=== PATIENT | female | born 1965 | race Caucasian/White ===

== ENCOUNTER 2017-03-31 15:23 | Emergency (ER) | payer MEDICARE, MEDICAID ==
[~2017-03-31] VITALS: Ht 167.6 cm; Wt 79.0 kg
[~2017-03-31 15:23] MED LIST: ALBU6.7H INH; BUDE10.2 INH; CLA10T PO; CRANBERRY PO; FOLIC ACID PO; LORA1TAB PO; PANT40TA39 PO; RANI150C4 PO; VITAMIN B PO; VITAMIN D PO; [UNRECOGNIZED DRUG - OTHER] NS
[2017-03-31 15:56] LABS: BASOPHILS % (AUTO) 0.4 % (0-1); EOSINOPHILS # (AUTO) 0.2 X10'3 (0-0.9); HEMOGLOBIN 13.1 g/dl (12.0-16.0); LYMPHOCYTES # (AUTO) 2.2 X10'3 (1.1-4.8); MEAN CORPUSCULAR HEMOGLOBIN 30.9 PG (27.0-31.0); MEAN CORPUSCULAR HGB CONC 34.5 % (33.0-36.5); MEAN CORPUSCULAR VOLUME 89.4 FL (78-98); MEAN PLATELET VOLUME 8.8 FL (7.4-10.4); MONOCYTES # (AUTO) 0.4 X10'3 (0-0.9); MONOCYTES % (AUTO) 5.1 % (2-12); NEUTROPHILS # (AUTO) 5.1 X10'3 (1.8-7.7); NEUTROPHILS % (AUTO) 63.5 % (42-75); PLATELET COUNT 220 X10'3 (140-440); RED BLOOD COUNT 4.24 X10'6 (4.20-5.60); RED CELL DISTRIBUTION WIDTH 13.9 % (11.5-14.5)
[2017-03-31 16:12] LABS: ALANINE AMINOTRANSFERASE 19 U/L (12-78); ALBUMIN 3.8 G/DL (3.4-5.0); ALBUMIN/GLOBULIN RATIO 1.1 (1.1-1.5); ALKALINE PHOSPHATASE 90 IU/L (46-116); ANION GAP 9 (8-16); ASPARTATE AMINO TRANSFERASE 21 U/L (10-37); BILIRUBIN,TOTAL 0.3 MG/DL (0.1-1.0); BLOOD UREA NITROGEN 8 MG/DL (7-18); BUN/CREATININE RATIO 14.3 (6.6-38.0); CALCIUM 8.9 MG/DL (8.5-10.1); CHLORIDE 99 MMOL/L (99-107); CREATININE 0.56 MG/DL (0.40-0.90); GLUCOSE 103 MG/DL (70-104); LIPASE 183 U/L (73-393); POTASSIUM 3.7 MMOL/L (3.5-5.1); SODIUM 136 MMOL/L (135-145); TOTAL CARBON DIOXIDE 27.7 MMOL/L (24-32); TOTAL PROTEIN 7.3 G/DL (6.4-8.2); eGFR > 90 ML/MIN
[2017-03-31] MEDS ORDERED: ketorolac trometh inj. 60 MG/2 ML VIAL IM ONE (17:10)
[2017-03-31] MEDS ORDERED: aspirin 81mg tab.chew PO ONE (17:10)
[2017-03-31] MEDS ORDERED: iohexol 350MG/ML 100ml bottle IV ONE (17:24)
[2017-03-31] MEDS ORDERED: normal saline 1000ml 1,000 ML IV ONE (17:30)
[2017-03-31] MEDS ORDERED: ondansetron/PF 4mg/2ml inj IV ONE (17:30)
[2017-03-31] MEDS ORDERED: ketorolac trometh. 30mg/ml inj. IV STA (17:35)
[2017-03-31 17:37] LABS: PROTHROMBIN TIME 10.1 SECONDS (9.0-12.0)
[2017-03-31 19:07] LABS: URINE HCG NEGATIVE (NEG)
[2017-03-31 19:17] LABS: URINE AMPHETAMINE SCREEN NEGATIVE (Neg); URINE BARBITUATE SCREEN NEGATIVE (Neg); URINE BENZODIAZEPINES SCREEN NEGATIVE (Neg); URINE CANNABINOID SCREEN NEGATIVE (Neg); URINE COCAINE SCREEN NEGATIVE (Neg); URINE METHADONE SCREEN NEGATIVE (Neg); URINE OPIATE SCREEN NEGATIVE (Neg); URINE PHENCYCLIDINE SCREEN NEGATIVE (Neg)
[2017-03-31 19:19] LABS: CLARITY,URINE SLIGHTLY CLOUDY (Clear); COLOR,URINE YELLOW (Yellow); GLUCOSE, URINE NEGATIVE (Neg); KETONES,URINE 15 mg/dl (Neg); LEUKOCYTE ESTERASE ,URINE NEGATIVE (Neg); NITRITES, URINE NEGATIVE (Neg); OCCULT BLOOD,URINE NEGATIVE (Neg); PH,URINE 8.5 (4.8-8.0); PROTEIN,URINE NEGATIVE (Neg); UROBILINOGEN,URINE 0.2 E.U/dL (0.2-1.0)
[2017-03-31 19:21] LABS: UA COLLECTION TYPE CLN CATCH MIDSTREAM
[2017-03-31 19:22] LABS: RBC,URINE NONE SEEN /HPF (0-2); WBC,URINE 0-4 /HPF (0-4)
[2017-03-31 19:23] LABS: BACTERIA,URINE 1+ /HPF (Neg); SQUAMOUS EPITHELIAL CELL,UR MODERATE /LPF (FEW); YEAST FEW /HPF (NEGATIVE)
[2017-03-31] MEDS ORDERED: HYDROmorphone 1 mg/ml syringe IV ONE ×2 (19:25→19:30)
[2017-03-31] MEDS ORDERED: pantoprazole 40 MG vial IV ONE (20:40)
[2017-03-31] MEDS ORDERED: SUCR1TAB34 PO (20:56)
[2017-03-31] MEDS ORDERED: PANT-47 PO (20:56)
[2017-03-31] MEDS ORDERED: ACET-812 PO (20:59)
[2017-03-31] MEDS ORDERED: HYDR-569 PO (20:59)
[2017-03-31 21:12] VITALS: BP 103/59
== END 2017-03-31 21:16 | disposition home or self-care (01) ==
LOC: ER 15:24
DX: K29.00 Acute gastritis without bleeding (principal); I48.91 Unspecified atrial fibrillation; J44.9 Chronic obstructive pulmonary disease, unspecified; K21.9 Gastro-esophageal reflux disease without esophagitis; G89.29 Other chronic pain; Z86.73 Personal history of transient ischemic attack (TIA), and cerebral infarction without residual deficits; Z85.038 Personal history of other malignant neoplasm of large intestine; Z86.711 Personal history of pulmonary embolism
CPT/HCPCS: 36415; 71275; 74175; 80053; 80305; 81001; 81025; 83605; 83690; 84145; 84484; 85025; 85610; 87040; 93005; 96361; 96374; 96375; 99285; C9113; J1885; J2405; J7030; Q9967

== ENCOUNTER 2017-04-25 16:05 | Emergency (ER) | payer MEDICARE, MEDICAID ==
[~2017-04-25] VITALS: Ht 167.6 cm; Wt 81.7 kg
[~2017-04-25 16:05] MED LIST changes: +ACET-812 PO; +HYDR-569 PO; +PANT-47 PO; +SUCR1TAB34 PO
[2017-04-25 16:10] VITALS: BP 111/83
[2017-04-25] MEDS ORDERED: PRED20TA PO (16:25)
== END 2017-04-25 16:38 | disposition home or self-care (01) ==
LOC: ER 16:06
DX: J02.9 Acute pharyngitis, unspecified (principal); J44.9 Chronic obstructive pulmonary disease, unspecified; K21.9 Gastro-esophageal reflux disease without esophagitis; G89.29 Other chronic pain; F17.200 Nicotine dependence, unspecified, uncomplicated; Z86.73 Personal history of transient ischemic attack (TIA), and cerebral infarction without residual deficits; Z86.711 Personal history of pulmonary embolism; Z79.899 Other long term (current) drug therapy
CPT/HCPCS: 99283

== ENCOUNTER 2018-09-15 20:48 | Emergency (ER) | payer MEDICARE, MEDICAID ==
[~2018-09-15] VITALS: Ht 167.6 cm; Wt 85.0 kg
[~2018-09-15 20:48] MED LIST changes: -ACET-812 PO; +HYDR-4383 PO; -HYDR-569 PO
[2018-09-15] MEDS ORDERED: normal saline 1000ML IV soln IVB ONE ×2 (20:55→22:05)
[2018-09-15] MEDS ORDERED: ketorolac tromethamine 15mg/ml inj. IV ONE (21:10)
[2018-09-15] MEDS ORDERED: ondansetron/PF 4mg/2ml inj IV ONE (21:10)
[2018-09-15 21:26] LABS: BASOPHILS % (AUTO) 0.7 % (0-1); EOSINOPHILS # (AUTO) 0.1 X10'3 (0-0.9); HEMATOCRIT 41.6 % (35.0-45.0); HEMOGLOBIN 14.4 g/dl (12.0-16.0); LYMPHOCYTES # (AUTO) 2.6 X10'3 (1.1-4.8); LYMPHOCYTES % (AUTO) 38.4 % (21-51); MEAN CORPUSCULAR HEMOGLOBIN 31.7 PG (27.0-31.0); MEAN CORPUSCULAR HGB CONC 34.5 g/dL (33.0-36.5); MEAN PLATELET VOLUME 8.6 FL (7.4-10.4); MONOCYTES # (AUTO) 0.4 X10'3 (0-0.9); MONOCYTES % (AUTO) 6.4 % (2-12); NEUTROPHILS # (AUTO) 3.6 X10'3 (1.8-7.7); NEUTROPHILS % (AUTO) 52.5 % (42-75); PLATELET COUNT 166 X10'3 (140-440); RED BLOOD COUNT 4.52 X10'6 (4.20-5.60); RED CELL DISTRIBUTION WIDTH 14.6 % (11.5-14.5); WHITE BLOOD COUNT 6.9 X10'3 (4.5-11.0)
[2018-09-15 21:33] LABS: UA COLLECTION TYPE NON-SPECIFIED
[2018-09-15 21:34] LABS: CLARITY,URINE CLEAR (Clear); COLOR,URINE YELLOW (Yellow); GLUCOSE, URINE NEGATIVE (Neg); KETONES,URINE NEGATIVE (Neg); LEUKOCYTE ESTERASE ,URINE NEGATIVE (Neg); NITRITES, URINE NEGATIVE (Neg); OCCULT BLOOD,URINE TRACE-INTACT (Neg); PROTEIN,URINE NEGATIVE (Neg); UROBILINOGEN,URINE 0.2 E.U/dL (0.2-1.0)
[2018-09-15 21:36] LABS: ALANINE AMINOTRANSFERASE 91 U/L (12-78); ALBUMIN 3.4 G/DL (3.4-5.0); ALKALINE PHOSPHATASE 86 IU/L (46-116); ANION GAP 12 (8-16); BILIRUBIN,TOTAL 0.4 MG/DL (0.1-1.0); BLOOD UREA NITROGEN 2 MG/DL (7-18); BUN/CREATININE RATIO 5.4 (6.6-38.0); CHLORIDE 92 MMOL/L (99-107); CREATININE 0.37 MG/DL (0.40-0.90); ETHANOL 0.246 GM/DL (0.0-0.010); GLUCOSE 82 MG/DL (70-104); LIPASE 262 U/L (73-393); POTASSIUM 3.3 MMOL/L (3.5-5.1); SODIUM 126 MMOL/L (135-145); TOTAL CARBON DIOXIDE 21.9 MMOL/L (24-32); TOTAL PROTEIN 6.8 G/DL (6.4-8.2); eGFR > 90 ML/MIN
[2018-09-15 21:40] LABS: BACTERIA,URINE NONE SEEN /HPF (Neg); MUCUS STRANDS NONE SEEN /LPF (Neg); RBC,URINE NONE SEEN /HPF (0-2); SQUAMOUS EPITHELIAL CELL,UR NONE SEEN /LPF (FEW); WBC,URINE NONE SEEN /HPF (0-4)
[2018-09-15 21:47] LABS: URINE AMPHETAMINE SCREEN NEGATIVE (Neg); URINE BARBITUATE SCREEN NEGATIVE (Neg); URINE BENZODIAZEPINES SCREEN NEGATIVE (Neg); URINE CANNABINOID SCREEN NEGATIVE (Neg); URINE COCAINE SCREEN NEGATIVE (Neg); URINE METHADONE SCREEN NEGATIVE (Neg); URINE OPIATE SCREEN NEGATIVE (Neg); URINE PHENCYCLIDINE SCREEN NEGATIVE (Neg)
[2018-09-15 21:50] LABS: ASPARTATE AMINO TRANSFERASE 83 U/L (10-37)
[2018-09-15] MEDS ORDERED: potassium Cl 20 mEq SR tablet PO STA (22:05)
[2018-09-15 22:50] VITALS: BP 106/82
== END 2018-09-15 23:13 | disposition home or self-care (01) ==
LOC: ER 20:48
DX: F10.929 Alcohol use, unspecified with intoxication, unspecified (principal); E87.6 Hypokalemia; E87.1 Hypo-osmolality and hyponatremia; R10.11 Right upper quadrant pain; R10.13 Epigastric pain; J44.9 Chronic obstructive pulmonary disease, unspecified; K21.9 Gastro-esophageal reflux disease without esophagitis; G89.29 Other chronic pain; Z88.0 Allergy status to penicillin; Z86.73 Personal history of transient ischemic attack (TIA), and cerebral infarction without residual deficits; Z86.711 Personal history of pulmonary embolism; Z79.899 Other long term (current) drug therapy; Y90.9 Presence of alcohol in blood, level not specified
CPT/HCPCS: 36415; 80053; 80305; 80320; 81001; 83690; 85025; 96361; 96374; 96375; 99283; J1885; J2405; J7030

== ENCOUNTER 2018-09-26 15:00 | Emergency (ER) | payer MEDICARE, MEDICAID ==
[~2018-09-26] VITALS: Ht 167.6 cm; Wt 84.5 kg
[2018-09-26] MEDS ORDERED: LORazepam 2 mg/ml vial IV ONE (16:25)
[2018-09-26] MEDS ORDERED: morphine 4 MG/ML inj SYRINge IV ONE (16:25)
[2018-09-26] MEDS ORDERED: normal saline 1000ML IV soln IVB ONE (16:25)
--- NOTE | 2018-09-26 16:45 | NUR ---
US ON WAY
[2018-09-26 17:02] LABS: ALANINE AMINOTRANSFERASE 160 U/L (12-78); ALBUMIN 3.5 G/DL (3.4-5.0); ALKALINE PHOSPHATASE 94 IU/L (46-116); ANION GAP 14 (8-16); ASPARTATE AMINO TRANSFERASE 202 U/L (10-37); BILIRUBIN,TOTAL 0.4 MG/DL (0.1-1.0); BLOOD UREA NITROGEN 3 MG/DL (7-18); BUN/CREATININE RATIO 6.8 (6.6-38.0); CALCIUM 8.3 MG/DL (8.5-10.1); CHLORIDE 95 MMOL/L (99-107); CREATININE 0.44 MG/DL (0.40-0.90); GLUCOSE 70 MG/DL (70-104); POTASSIUM 3.4 MMOL/L (3.5-5.1); SODIUM 130 MMOL/L (135-145); TOTAL CARBON DIOXIDE 21.3 MMOL/L (24-32); TOTAL PROTEIN 6.9 G/DL (6.4-8.2); eGFR > 90 ML/MIN
[2018-09-26 17:03] LABS: BASOPHILS % (AUTO) 0.8 % (0-1); EOSINOPHILS # (AUTO) 0.1 X10'3 (0-0.9); EOSINOPHILS % (AUTO) 1.2 % (0-6); HEMATOCRIT 41.5 % (35.0-45.0); HEMOGLOBIN 14.5 g/dl (12.0-16.0); LYMPHOCYTES # (AUTO) 2.4 X10'3 (1.1-4.8); LYMPHOCYTES % (AUTO) 40.7 % (21-51); MEAN CORPUSCULAR HEMOGLOBIN 32.7 PG (27.0-31.0); MEAN CORPUSCULAR VOLUME 93.5 FL (78-98); MEAN PLATELET VOLUME 8.6 FL (7.4-10.4); MONOCYTES # (AUTO) 0.3 X10'3 (0-0.9); MONOCYTES % (AUTO) 5.9 % (2-12); NEUTROPHILS % (AUTO) 51.4 % (42-75); PLATELET COUNT 185 X10'3 (140-440); RED BLOOD COUNT 4.44 X10'6 (4.20-5.60); RED CELL DISTRIBUTION WIDTH 15.1 % (11.5-14.5); WHITE BLOOD COUNT 5.9 X10'3 (4.5-11.0)
[2018-09-26 18:40] LABS: LIPASE 199 U/L (73-393)
[2018-09-26] MEDS ORDERED: ONDA4TAB6 PO (18:56)
[2018-09-26 19:12] VITALS: BP 124/72
[2018-09-30] MEDS ORDERED: ALBU18HF2 IH (12:42)
[2018-09-30] MEDS ORDERED: ASPI-611 PO (12:45)
== END 2018-09-26 19:13 | disposition home or self-care (01) ==
LOC: ER 15:00
DX: K80.20 Calculus of gallbladder without cholecystitis without obstruction (principal); R11.10 Vomiting, unspecified; J44.9 Chronic obstructive pulmonary disease, unspecified; K21.9 Gastro-esophageal reflux disease without esophagitis; G89.29 Other chronic pain; Z79.899 Other long term (current) drug therapy; Z86.73 Personal history of transient ischemic attack (TIA), and cerebral infarction without residual deficits; Z86.711 Personal history of pulmonary embolism
CPT/HCPCS: 36415; 76700; 80053; 83690; 85025; 96361; 96374; 96375; 99284; J2060; J2270; J7030

== ENCOUNTER 2018-10-21 08:34 | Outpatient (CLI) | payer MEDICARE, MEDICAID ==
[~2018-10-21 08:34] MED LIST changes: -ALBU6.7H INH; -BUDE10.2 INH; -CLA10T PO; -CRANBERRY PO; -FOLIC ACID PO; -HYDR-4383 PO; +LORA-269 PO; -LORA1TAB PO; +ONDA4TAB6 PO; -PANT-47 PO; -PANT40TA39 PO; +PANT40TA4 PO; -RANI150C4 PO; -SUCR1TAB34 PO; -VITAMIN B PO; -VITAMIN D PO; -[UNRECOGNIZED DRUG - OTHER] NS
== END 2018-10-21 23:59 | disposition home or self-care (01) ==
LOC: RAD 08:34
PROVIDERS: ATTEND Surgery
DX: R10.9 Unspecified abdominal pain (principal); J44.9 Chronic obstructive pulmonary disease, unspecified; F17.200 Nicotine dependence, unspecified, uncomplicated; Z90.49 Acquired absence of other specified parts of digestive tract
CPT/HCPCS: 78226; A9537

== ENCOUNTER 2018-11-03 12:58 | Inpatient (IN) | payer MEDICARE, MEDICAID ==
[~2018-11-03] VITALS: Ht 167.6 cm; Wt 77.3 kg
[2018-11-03] MEDS ORDERED: normal saline 1000ML IV soln IVB ONE ×2 (13:25→14:55)
[2018-11-03] MEDS ORDERED: haloperidol lactate 5mg/ml inj IM ONE (13:25)
[2018-11-03] MEDS ORDERED: LORazepam 2 mg/ml vial IV ONE (13:25)
[2018-11-03 13:46] LABS: BASOPHILS % (AUTO) 0.3 % (0-1); EOSINOPHILS # (AUTO) 0.1 X10'3 (0-0.9); EOSINOPHILS % (AUTO) 0.5 % (0-6); HEMATOCRIT 42.9 % (35.0-45.0); HEMOGLOBIN 14.8 g/dl (12.0-16.0); LYMPHOCYTES # (AUTO) 1.3 X10'3 (1.1-4.8); LYMPHOCYTES % (AUTO) 13.2 % (21-51); MEAN CORPUSCULAR HGB CONC 34.6 g/dL (33.0-36.5); MEAN CORPUSCULAR VOLUME 92.5 FL (78-98); MEAN PLATELET VOLUME 10.1 FL (7.4-10.4); MONOCYTES # (AUTO) 0.7 X10'3 (0-0.9); MONOCYTES % (AUTO) 6.5 % (2-12); NEUTROPHILS % (AUTO) 79.5 % (42-75); PLATELET COUNT 209 X10'3 (140-440); RED BLOOD COUNT 4.63 X10'6 (4.20-5.60); RED CELL DISTRIBUTION WIDTH 13.6 % (11.5-14.5)
[2018-11-03] MEDS ORDERED: morphine 4 MG/ML inj SYRINge IV ONE (13:55)
[2018-11-03 13:57] LABS: ALANINE AMINOTRANSFERASE 198 U/L (12-78); ALBUMIN 3.6 G/DL (3.4-5.0); ALKALINE PHOSPHATASE 670 IU/L (46-116); ANION GAP 12 (8-16); ASPARTATE AMINO TRANSFERASE 359 U/L (10-37); BILIRUBIN,TOTAL 1.6 MG/DL (0.1-1.0); BLOOD UREA NITROGEN 3 MG/DL (7-18); BUN/CREATININE RATIO 4.5 (6.6-38.0); CALCIUM 9.7 MG/DL (8.5-10.1); CHLORIDE 97 MMOL/L (99-107); CREATININE 0.66 MG/DL (0.40-0.90); GLUCOSE 121 MG/DL (70-104); LIPASE 142 U/L (73-393); POTASSIUM 3.4 MMOL/L (3.5-5.1); SODIUM 131 MMOL/L (135-145); TOTAL PROTEIN 7.2 G/DL (6.4-8.2); eGFR > 90 ML/MIN
--- NOTE | 2018-11-03 14:09 | NUR ---
TO CT VIA W/C
[2018-11-03 15:27] LABS: CLARITY,URINE CLOUDY (Clear); COLOR,URINE YELLOW (Yellow); GLUCOSE, URINE NEGATIVE (Neg); KETONES,URINE 15 mg/dl (Neg); LEUKOCYTE ESTERASE ,URINE NEGATIVE (Neg); NITRITES, URINE NEGATIVE (Neg); OCCULT BLOOD,URINE TRACE-INTACT (Neg); PROTEIN,URINE 100 mg/dl (Neg)
[2018-11-03 15:29] LABS: UA COLLECTION TYPE CLN CATCH MIDSTREAM
--- NOTE | 2018-11-03 15:32 | NUR ---
spouse mary phone number [phone] home cell [phone]
[2018-11-03 15:38] LABS: HYALINE CASTS >30 /LPF (NEGATIVE); MUCUS STRANDS MODERATE /LPF (Neg); SQUAMOUS EPITHELIAL CELL,UR MANY /LPF (FEW); URINE AMPHETAMINE SCREEN NEGATIVE (Neg); URINE BARBITUATE SCREEN NEGATIVE (Neg); URINE BENZODIAZEPINES SCREEN NEGATIVE (Neg); URINE CANNABINOID SCREEN NEGATIVE (Neg); URINE COCAINE SCREEN NEGATIVE (Neg); URINE METHADONE SCREEN NEGATIVE (Neg); URINE OPIATE SCREEN POSITIVE (Neg); URINE PHENCYCLIDINE SCREEN NEGATIVE (Neg)
[2018-11-03 15:39] LABS: BACTERIA,URINE 2+ /HPF (Neg)
[2018-11-03 15:41] LABS: ACETAMINOPHEN < 2.0 UG/ML (10-30); ETHANOL < 0.010 GM/DL (0.0-0.010)
[2018-11-03] MEDS ORDERED: ESOM40CA54 PO (15:48)
[2018-11-03] MEDS ORDERED: mag hydrox/Alum hydrox/simeth 30ml oral suspension PO PRN (15:50)
[2018-11-03] MEDS ORDERED: ondansetron/PF 4mg/2ml inj IV PRN (15:50)
[2018-11-03] MEDS ORDERED: magnesium hydroxide 30ml (MOM) UD suspension PO PRN (15:50)
[2018-11-03] MEDS ORDERED: acetaminophen 325mg tablet PO PRN (15:50)
[2018-11-03] MEDS ORDERED: TRAM50TA2 PO (16:03)
[2018-11-03] MEDS: normal saline 1000ml 1,000 ML IV SCH ×2 (16:26→18:30)
--- NOTE | 2018-11-03 16:31 | NUR ---
MRI QUESTIONAIRE COMPLETE
--- NOTE | 2018-11-03 19:00 | NUR ---
ATTEMPTED TO CALL SAL TO GIVE REPORT ON PT GOING TO [id number]. SHE IS IN ANOTHER PT ROOM
--- NOTE | 2018-11-03 19:14 | NUR ---
CALLED REPORT TO SAL WINTER IN NEURO
--- NOTE | 2018-11-03 19:20 | NUR ---
Received report from HARDBOARD FACTORY WORKERMAGGY Montelongo. Patient to follow shortly.
[2018-11-03 19:30] VITALS: BP 99/61
--- NOTE | 2018-11-03 19:30 | NUR ---
Patient just recently arrived to floor via w/c. A&O, and VS being taken at this time.
--- NOTE | 2018-11-03 19:36 | NUR ---
PT TRANSFERRED TO 4013b ON PORTABLE TELE MONITOR, IN W/C , WITHOUT INCIDENT. TECH CAME TO ROOM ON PT ARRIVAL, RN AWARE OF PT ARRIVAL. PT TRANSFERRED SELF TO BED
[2018-11-03] MEDS: heparin, porcine 5000 units/ml vial SQ SCH (21:06)
[2018-11-03] MEDS ORDERED: potassium CL 10mEq/100ml bag 100 ML IV PRN ×2 (23:20)
[2018-11-04] VITALS (13 sets, daily range): BP systolic 91–130; BP diastolic 51–77
[2018-11-04] MEDS ORDERED: magnesium 2GM in 50ml NS 50 ML IV PRN (00:50)
[2018-11-04] MEDS ORDERED: magnesium 4gm in 100ml NS 100 ML IV PRN (00:50)
[2018-11-04] MEDS ORDERED: potassium Cl 20 mEq SR tablet PO PRN ×2 (00:50)
[2018-11-04] MEDS ORDERED: magnesium Cl slow-release 64mg tablet PO PRN (00:50)
--- NOTE | 2018-11-04 00:54 | NUR ---
Patient was receiving potassium replacement via PIV. Had to stop infusing as pt. c/o pain running up her arm. Pharmacy unable to add lidocaine to IV bag of K, so patient now receiving PO replacement.
[2018-11-04 05:50] LABS: BASOPHILS % (AUTO) 0.6 % (0-1); EOSINOPHILS # (AUTO) 0.2 X10'3 (0-0.9); EOSINOPHILS % (AUTO) 2.7 % (0-6); HEMATOCRIT 37.1 % (35.0-45.0); HEMOGLOBIN 12.7 g/dl (12.0-16.0); LYMPHOCYTES # (AUTO) 2.1 X10'3 (1.1-4.8); LYMPHOCYTES % (AUTO) 37.6 % (21-51); MEAN CORPUSCULAR HEMOGLOBIN 32.2 PG (27.0-31.0); MEAN CORPUSCULAR HGB CONC 34.3 g/dL (33.0-36.5); MEAN PLATELET VOLUME 10.1 FL (7.4-10.4); MONOCYTES # (AUTO) 0.3 X10'3 (0-0.9); NEUTROPHILS % (AUTO) 53.1 % (42-75); PLATELET COUNT 176 X10'3 (140-440); RED BLOOD COUNT 3.94 X10'6 (4.20-5.60); RED CELL DISTRIBUTION WIDTH 13.4 % (11.5-14.5); WHITE BLOOD COUNT 5.7 X10'3 (4.5-11.0)
[2018-11-04 05:52] LABS: ALANINE AMINOTRANSFERASE 276 U/L (12-78); ALBUMIN 2.6 G/DL (3.4-5.0); ALBUMIN/GLOBULIN RATIO 0.9 (1.1-1.5); ALKALINE PHOSPHATASE 541 IU/L (46-116); ANION GAP 10 (8-16); ASPARTATE AMINO TRANSFERASE 334 U/L (10-37); BILIRUBIN,TOTAL 1.2 MG/DL (0.1-1.0); BLOOD UREA NITROGEN 2 MG/DL (7-18); BUN/CREATININE RATIO 3.8 (6.6-38.0); CALCIUM 8.5 MG/DL (8.5-10.1); CHLORIDE 107 MMOL/L (99-107); CREATININE 0.53 MG/DL (0.40-0.90); GLUCOSE 83 MG/DL (70-104); MAGNESIUM 1.3 MG/DL (1.5-2.4); POTASSIUM 3.6 MMOL/L (3.5-5.1); SODIUM 139 MMOL/L (135-145); TOTAL CARBON DIOXIDE 22.2 MMOL/L (24-32); TOTAL PROTEIN 5.5 G/DL (6.4-8.2); eGFR > 90 ML/MIN
[2018-11-04] MEDS ORDERED: diphenhydrAMINE 50 mg/ml inj ONE (06:23)
[2018-11-04] MEDS ORDERED: fentaNYL/PF 50MCG/1 ML 2ML syringe ONE (06:23)
[2018-11-04] MEDS ORDERED: meperidine/PF 100mg/ml syringe ONE ×2 (06:23→06:25)
[2018-11-04] MEDS ORDERED: MIDAZolam 5mg/5ml vial ONE (06:23)
[2018-11-04] MEDS ORDERED: LIDOcaine Viscous 15ml cup ONE (06:24)
[2018-11-04] MEDS ORDERED: levoFLOXACIN-Levaquin 500mg/D5 100 ML IV ONE (06:24)
[2018-11-04] MEDS ORDERED: iohexol 300 MG/1 ML 50ml polymer ONE (06:24)
[2018-11-04] MEDS ORDERED: glucagon, human recombinant 1mg kit ONE (06:24)
--- NOTE | 2018-11-04 06:25 | NUR ---
Patient in room ORTHO 4013. I have received report from Mila WINTER and had the opportunity to ask questions and assume patient care.
--- NOTE | 2018-11-04 06:40 | NUR ---
Pt taken to GI lab for ERCP.
[2018-11-04] MEDS: heparin, porcine 5000 units/ml vial SQ SCH ×2 (08:00→19:35)
[2018-11-04] MEDS: K and/or MAG REPLACEMENT MC SCH (08:00)
--- NOTE | 2018-11-04 09:50 | NUR ---
Pt returned from GI lab
[2018-11-04] MEDS: normal saline 1000ml 1,000 ML IV SCH ×2 (11:46→19:38)
--- NOTE | 2018-11-04 14:35 | NUR ---
PAGER ID: [phone] MESSAGE: Cholo Crepso, Delicia Bhatt in [id number] is requesting a Nicotine patch, please advise, thank you Elissa
--- NOTE | 2018-11-04 18:24 | NUR ---
Problems reprioritized. Patient report given, questions answered & plan of care reviewed with Юлия WINTER.
--- NOTE | 2018-11-04 19:30 | NUR ---
Patient wanting to go outside for a cigarette. Nicotine patch ordered. 14mg applied to left shoulder.
[2018-11-04] MEDS: nicotine 14mg patch - 24hr TD SCH (19:35)
--- NOTE | 2018-11-04 20:30 | NUR ---
Patient wanted her Ativan that she usually takes at HS. Dr. Nassar called and does not want patient to continue it here, Because of her elevated LFT's. MD order Atarax 50mg Q6hr PRN for anxiety. Patient informed and willing to try Atarax.
[2018-11-04] MEDS ORDERED: hydrOXYzine 25 MG tablet PO PRN (20:50)
[2018-11-05 02:00] VITALS: BP 101/55
[2018-11-05] MEDS: normal saline 1000ml 1,000 ML IV SCH (05:09)
[2018-11-05 06:00] VITALS: BP 129/63
--- NOTE | 2018-11-05 06:15 | NUR ---
Report received from MAGGY Redman
--- NOTE | 2018-11-05 06:38 | NUR ---
Problems reprioritized. Patient report given, questions answered & plan of care reviewed with Esme WINTER.
[2018-11-05 06:45] LABS: EOSINOPHILS # (AUTO) 0.2 X10'3 (0-0.9); EOSINOPHILS % (AUTO) 3.4 % (0-6); HEMATOCRIT 36.8 % (35.0-45.0); HEMOGLOBIN 12.6 g/dl (12.0-16.0); LYMPHOCYTES # (AUTO) 2.2 X10'3 (1.1-4.8); MEAN CORPUSCULAR HEMOGLOBIN 32.3 PG (27.0-31.0); MEAN CORPUSCULAR HGB CONC 34.1 g/dL (33.0-36.5); MEAN CORPUSCULAR VOLUME 94.6 FL (78-98); MEAN PLATELET VOLUME 9.9 FL (7.4-10.4); MONOCYTES # (AUTO) 0.3 X10'3 (0-0.9); MONOCYTES % (AUTO) 5.2 % (2-12); NEUTROPHILS # (AUTO) 2.4 X10'3 (1.8-7.7); NEUTROPHILS % (AUTO) 47.4 % (42-75); PLATELET COUNT 168 X10'3 (140-440); RED CELL DISTRIBUTION WIDTH 13.6 % (11.5-14.5)
[2018-11-05 06:59] LABS: ALANINE AMINOTRANSFERASE 178 U/L (12-78); ALBUMIN 2.7 G/DL (3.4-5.0); ALKALINE PHOSPHATASE 428 IU/L (46-116); ANION GAP 9 (8-16); ASPARTATE AMINO TRANSFERASE 113 U/L (10-37); BILIRUBIN,TOTAL 0.5 MG/DL (0.1-1.0); BLOOD UREA NITROGEN 2 MG/DL (7-18); BUN/CREATININE RATIO 4.3 (6.6-38.0); CALCIUM 8.5 MG/DL (8.5-10.1); CHLORIDE 108 MMOL/L (99-107); CREATININE 0.46 MG/DL (0.40-0.90); GLUCOSE 87 MG/DL (70-104); POTASSIUM 3.5 MMOL/L (3.5-5.1); SODIUM 139 MMOL/L (135-145); TOTAL CARBON DIOXIDE 22.2 MMOL/L (24-32); TOTAL PROTEIN 5.5 G/DL (6.4-8.2); eGFR > 90 ML/MIN
[2018-11-05] MEDS: K and/or MAG REPLACEMENT MC SCH (08:00)
[2018-11-05] MEDS: heparin, porcine 5000 units/ml vial SQ SCH (08:19)
[2018-11-05] MEDS: nicotine 14mg patch - 24hr TD SCH (08:20)
== END 2018-11-05 11:15 | disposition home or self-care (01) | DRG 445 ==
LOC: ER 12:58 → ORTHO 4S 15:46 → CMPBEDREQ 19:47
PROVIDERS: ADMIT Family Medicine; ATTEND Family Medicine
PROC: 0FC98ZZ Extirpation of Matter from Common Bile Duct, Via Natural or Artificial Opening Endoscopic (ICD-10-PCS; principal; 2018-11-04)
PROC: BF101ZZ Fluoroscopy of Bile Ducts using Low Osmolar Contrast (ICD-10-PCS; 2018-11-04)
DX: K80.50 Calculus of bile duct without cholangitis or cholecystitis without obstruction (principal); E87.1 Hypo-osmolality and hyponatremia; J44.9 Chronic obstructive pulmonary disease, unspecified; K21.9 Gastro-esophageal reflux disease without esophagitis; F41.9 Anxiety disorder, unspecified; G89.29 Other chronic pain; M54.9 Dorsalgia, unspecified; R74.0 Nonspecific elevation of levels of transaminase and lactic acid dehydrogenase [LDH]; E86.0 Dehydration; Z98.49 Cataract extraction status, unspecified eye; Z88.0 Allergy status to penicillin; Z79.899 Other long term (current) drug therapy; Z90.49 Acquired absence of other specified parts of digestive tract; Z85.038 Personal history of other malignant neoplasm of large intestine; Z86.711 Personal history of pulmonary embolism; Z86.73 Personal history of transient ischemic attack (TIA), and cerebral infarction without residual deficits
CPT/HCPCS: 36415; 43262; 43264; 74176; 74181; 80053; 80305; 80320; 80329; 81001; 83690; 83735; 85025; 85610; 87081; 96361; 96372; 96374; 96375; 99152; 99153; 99285; C1769; G0378; J1200; J1610; J1630; J1644; J1956; J2060; J2175; J2250; J2270; J3010; J3480; J7030; J7040; Q9967; Z7610

== ENCOUNTER 2019-03-09 07:42 | Day surgery (SDC) | payer MEDICARE, MEDICAID ==
[~2019-03-09] VITALS: Ht 170.2 cm; Wt 86.4 kg
[~2019-03-09 07:42] MED LIST changes: +ESOM40CA54 PO; -PANT40TA4 PO; +TRAM50TA2 PO
[2019-03-09] MEDS ORDERED: MIDAZolam 5mg/5ml vial ONE (07:54)
[2019-03-09] MEDS ORDERED: fentaNYL/PF 50MCG/1 ML 2ML syringe ONE (07:54)
[2019-03-09 07:55] VITALS: BP 106/60
[2019-03-09] MEDS ORDERED: ASPI-611 PO (08:02)
[2019-03-09] MEDS ORDERED: MULT-1130 PO (08:04)
== END 2019-03-09 09:00 | disposition home or self-care (01) ==
LOC: GI LAB 07:42
PROVIDERS: ATTEND Internal Medicine Gastroenterology
DX: K52.839 Microscopic colitis, unspecified (principal); Z53.8 Procedure and treatment not carried out for other reasons
CPT/HCPCS: J2250; J3010; J7040; A4620

== ENCOUNTER 2019-03-22 11:33 | Day surgery (SDC) | payer MEDICARE, MEDICAID ==
[~2019-03-22] VITALS: Ht 171.4 cm; Wt 84.1 kg
[~2019-03-22 11:33] MED LIST changes: +ASPI-611 PO; +MULT-1130 PO; -ONDA4TAB6 PO; -TRAM50TA2 PO
[2019-03-22 11:45] VITALS: BP 113/64
[2019-03-22] MEDS ORDERED: fentaNYL/PF 50MCG/1 ML 2ML syringe ONE ×2 (12:44→12:47)
[2019-03-22] MEDS ORDERED: MIDAZolam 5mg/5ml vial ONE ×2 (12:45→12:47)
[2019-03-22] MEDS ORDERED: LIDOcaine Viscous 15ml cup ONE (12:45)
[2019-03-22 13:20] VITALS: BP 165/67
[2019-03-22 13:30] VITALS: BP 119/72
[2019-03-22 13:40] VITALS: BP 100/75
[2019-03-22 13:50] VITALS: BP 108/67
== END 2019-03-22 13:50 | disposition home or self-care (01) ==
LOC: GI LAB 11:33
PROVIDERS: ATTEND Internal Medicine Gastroenterology
DX: R19.7 Diarrhea, unspecified (principal); K63.5 Polyp of colon; K64.8 Other hemorrhoids; Z98.0 Intestinal bypass and anastomosis status
CPT/HCPCS: 45380; 45385; 99153; C1773; G0500; J2250; J3010; J7040; 88305; 88313; 99152; A4620

== ENCOUNTER 2019-06-02 21:36 | Emergency (ER) | payer MEDICARE, MEDICAID ==
[~2019-06-02] VITALS: Ht 167.6 cm; Wt 82.7 kg
[2019-06-02 22:22] LABS: CLARITY,URINE CLEAR (Clear); COLOR,URINE YELLOW (Yellow); GLUCOSE, URINE NEGATIVE (Neg); KETONES,URINE NEGATIVE (Neg); LEUKOCYTE ESTERASE ,URINE NEGATIVE (Neg); NITRITES, URINE NEGATIVE (Neg); OCCULT BLOOD,URINE SMALL (Neg); PH,URINE 6.5 (4.8-8.0); PROTEIN,URINE NEGATIVE (Neg); UROBILINOGEN,URINE 0.2 E.U/dL (0.2-1.0)
[2019-06-02 22:24] LABS: URINE HCG NEGATIVE (NEG)
[2019-06-02 22:31] LABS: UA COLLECTION TYPE CLN CATCH MIDSTREAM
[2019-06-02 22:33] LABS: BACTERIA,URINE NONE SEEN /HPF (Neg); RBC,URINE 0-2 /HPF (0-2); SQUAMOUS EPITHELIAL CELL,UR FEW /LPF (FEW); WBC,URINE NONE SEEN /HPF (0-4)
[2019-06-02 22:44] LABS: BASOPHILS % (AUTO) 0.5 % (0-1); EOSINOPHILS # (AUTO) 0.2 X10'3 (0-0.9); EOSINOPHILS % (AUTO) 2.4 % (0-6); HEMATOCRIT 45.1 % (35.0-45.0); HEMOGLOBIN 15.8 g/dl (12.0-16.0); LYMPHOCYTES # (AUTO) 3.1 X10'3 (1.1-4.8); LYMPHOCYTES % (AUTO) 38.6 % (21-51); MEAN CORPUSCULAR HEMOGLOBIN 33.9 PG (27.0-31.0); MEAN CORPUSCULAR HGB CONC 35.1 g/dL (33.0-36.5); MEAN CORPUSCULAR VOLUME 96.6 FL (78-98); MEAN PLATELET VOLUME 8.3 FL (7.4-10.4); MONOCYTES # (AUTO) 0.3 X10'3 (0-0.9); MONOCYTES % (AUTO) 4.3 % (2-12); NEUTROPHILS # (AUTO) 4.3 X10'3 (1.8-7.7); NEUTROPHILS % (AUTO) 54.2 % (42-75); PLATELET COUNT 205 X10'3 (140-440); RED BLOOD COUNT 4.67 X10'6 (4.20-5.60); RED CELL DISTRIBUTION WIDTH 12.7 % (11.5-14.5); WHITE BLOOD COUNT 7.9 X10'3 (4.5-11.0)
[2019-06-02 23:03] LABS: ALANINE AMINOTRANSFERASE 44 U/L (12-78); ALBUMIN 3.6 G/DL (3.4-5.0); ALKALINE PHOSPHATASE 94 IU/L (46-116); AMYLASE 19 U/L (25-115); ANION GAP 13 (8-16); ASPARTATE AMINO TRANSFERASE 54 U/L (10-37); BILIRUBIN,TOTAL 0.5 MG/DL (0.1-1.0); CALCIUM 8.7 MG/DL (8.5-10.1); CHLORIDE 98 MMOL/L (99-107); CREATININE 0.51 MG/DL (0.40-0.90); GLUCOSE 80 MG/DL (70-104); LIPASE 149 U/L (73-393); POTASSIUM 3.5 MMOL/L (3.5-5.1); SODIUM 133 MMOL/L (135-145); TOTAL CARBON DIOXIDE 22.3 MMOL/L (24-32); TOTAL PROTEIN 7.1 G/DL (6.4-8.2); eGFR > 90 ML/MIN
[2019-06-02 23:11] LABS: BLOOD UREA NITROGEN 1 MG/DL (7-18)
[2019-06-02] MEDS ORDERED: morphine 4 MG/ML inj SYRINge IM ONE (23:25)
[2019-06-02] MEDS ORDERED: ondansetron 4mg rapidly disintigrating tab PO STA (23:56)
[2019-06-03] MEDS ORDERED: pantoprazole 40mg Tablet.DR PO ONE
[2019-06-03] MEDS ORDERED: famotidine 20mg tablet PO ONE
[2019-06-03] MEDS ORDERED: mag hydrox/Alum hydrox/simeth 30ml oral suspension PO ONE
--- NOTE | 2019-06-03 00:21 | NUR ---
PT UP OUT OF BED TO BATHROOM . AMBULATED HERSELF WITH STEADY GAIT
[2019-06-03 00:34] VITALS: BP 131/72
== END 2019-06-03 00:36 | disposition home or self-care (01) ==
LOC: ER 21:36
DX: R10.31 Right lower quadrant pain (principal); R19.7 Diarrhea, unspecified; J44.9 Chronic obstructive pulmonary disease, unspecified; K21.9 Gastro-esophageal reflux disease without esophagitis; G89.29 Other chronic pain; F41.9 Anxiety disorder, unspecified; F17.200 Nicotine dependence, unspecified, uncomplicated; Z86.73 Personal history of transient ischemic attack (TIA), and cerebral infarction without residual deficits; Z86.711 Personal history of pulmonary embolism; Z90.49 Acquired absence of other specified parts of digestive tract; Z98.890 Other specified postprocedural states; Z88.0 Allergy status to penicillin; Z79.82 Long term (current) use of aspirin; Z79.899 Other long term (current) drug therapy
CPT/HCPCS: 36415; 74176; 80053; 81001; 81025; 82150; 83690; 85025; 96372; 99284; J2270

== ENCOUNTER 2020-10-03 20:46 | Emergency (ER) | payer MEDICARE, MEDICAID ==
[~2020-10-03] VITALS: Ht 162.6 cm; Wt 81.0 kg
[~2020-10-03 20:46] MED LIST changes: -ESOM40CA54 PO; +LORA10TA7 PO; +PANT40TA54 PO
--- NOTE | 2020-10-03 22:16 | NUR ---
pt to room, assumed care
[2020-10-03] MEDS ORDERED: LORazepam 1 MG tablet PO ONE (23:25)
[2020-10-03 23:46] LABS: CLARITY,URINE CLEAR (Clear); COLOR,URINE YELLOW (Yellow); GLUCOSE, URINE NEGATIVE (Neg); KETONES,URINE NEGATIVE (Neg); LEUKOCYTE ESTERASE ,URINE NEGATIVE (Neg); NITRITES, URINE NEGATIVE (Neg); OCCULT BLOOD,URINE NEGATIVE (Neg); PH,URINE 6.5 (4.8-8.0); PROTEIN,URINE NEGATIVE (Neg); UROBILINOGEN,URINE 0.2 E.U/dL (0.2-1.0)
[2020-10-03 23:46] LABS: BASOPHILS # (AUTO) 0.1 X10'3 (0-0.2); BASOPHILS % (AUTO) 1.2 % (0-1); EOSINOPHILS # (AUTO) 0.2 X10'3 (0-0.9); EOSINOPHILS % (AUTO) 3.1 % (0-6); HEMATOCRIT 40.6 % (35.0-45.0); LYMPHOCYTES # (AUTO) 2.1 X10'3 (1.1-4.8); LYMPHOCYTES % (AUTO) 41.8 % (21-51); MEAN CORPUSCULAR HGB CONC 34.5 g/dL (33.0-36.5); MEAN CORPUSCULAR VOLUME 101.3 FL (78-98); MEAN PLATELET VOLUME 9.1 FL (7.4-10.4); MONOCYTES # (AUTO) 0.3 X10'3 (0-0.9); MONOCYTES % (AUTO) 6.2 % (2-12); NEUTROPHILS # (AUTO) 2.4 X10'3 (1.8-7.7); NEUTROPHILS % (AUTO) 47.7 % (42-75); PLATELET COUNT 127 X10'3 (140-440); RED BLOOD COUNT 4.01 X10'6 (4.20-5.60); RED CELL DISTRIBUTION WIDTH 12.8 % (11.5-14.5)
[2020-10-03 23:49] LABS: UA COLLECTION TYPE CLN CATCH MIDSTREAM
[2020-10-03 23:59] LABS: ALANINE AMINOTRANSFERASE 77 U/L (12-78); ALBUMIN 3.9 G/DL (3.4-5.0); ALBUMIN/GLOBULIN RATIO 1.4 (1.1-1.5); ALKALINE PHOSPHATASE 82 IU/L (46-116); ANION GAP 13 (8-16); ASPARTATE AMINO TRANSFERASE 93 U/L (10-37); BILIRUBIN,TOTAL 0.6 MG/DL (0.1-1.0); BLOOD UREA NITROGEN 2 MG/DL (7-18); BUN/CREATININE RATIO 4.3 (6.6-38.0); CALCIUM 8.2 MG/DL (8.5-10.1); CHLORIDE 96 MMOL/L (99-107); CREATININE 0.47 MG/DL (0.40-0.90); GLUCOSE 83 MG/DL (70-104); LIPASE 175 U/L (73-393); POTASSIUM 3.2 MMOL/L (3.5-5.1); SODIUM 132 MMOL/L (135-145); TOTAL CARBON DIOXIDE 22.9 MMOL/L (24-32); TOTAL PROTEIN 6.7 G/DL (6.4-8.2); eGFR > 90 ML/MIN
[2020-10-04] MEDS ORDERED: potassium Cl 20 mEq SR tablet PO ONE (00:25)
[2020-10-04] MEDS ORDERED: ONDA4TAB6 PO (00:56)
[2020-10-04 01:11] VITALS: BP 134/81
== END 2020-10-04 01:12 | disposition home or self-care (01) ==
LOC: ER 20:47
DX: R42 Dizziness and giddiness (principal); E87.6 Hypokalemia; F41.9 Anxiety disorder, unspecified; R19.7 Diarrhea, unspecified; F10.20 Alcohol dependence, uncomplicated; J44.9 Chronic obstructive pulmonary disease, unspecified; K21.9 Gastro-esophageal reflux disease without esophagitis; G89.29 Other chronic pain; F17.200 Nicotine dependence, unspecified, uncomplicated; K76.9 Liver disease, unspecified; Z86.73 Personal history of transient ischemic attack (TIA), and cerebral infarction without residual deficits; Z87.01 Personal history of pneumonia (recurrent); Z85.038 Personal history of other malignant neoplasm of large intestine; Z90.49 Acquired absence of other specified parts of digestive tract; Z56.0 Unemployment, unspecified; Y90.9 Presence of alcohol in blood, level not specified
CPT/HCPCS: 36415; 80053; 81003; 83690; 85025; 93005; 99284

== ENCOUNTER 2022-03-14 11:27 | Emergency (ER) | payer MEDICARE, MEDICAID ==
[~2022-03-14] VITALS: Ht 167.6 cm; Wt 81.4 kg
[~2022-03-14 11:27] MED LIST changes: +ONDA4TAB6 PO
--- NOTE | 2022-03-14 12:19 | NUR ---
RAVEN CLAYTON RN NOTIFIED OF GENERAL ASSESSMENT.
[2022-03-14 12:20] VITALS: BP 113/79
[2022-03-14 12:28] LABS: CLARITY,URINE CLEAR (Clear); COLOR,URINE STRAW (Yellow); GLUCOSE, URINE NEGATIVE (Neg); KETONES,URINE NEGATIVE (Neg); LEUKOCYTE ESTERASE ,URINE NEGATIVE (Neg); NITRITES, URINE NEGATIVE (Neg); OCCULT BLOOD,URINE NEGATIVE (Neg); PROTEIN,URINE NEGATIVE (Neg); UROBILINOGEN,URINE 0.2 E.U/dL (0.2-1.0)
[2022-03-14] MEDS ORDERED: dicyclomine 10 MG capsule PO ONE (12:30)
--- NOTE | 2022-03-14 12:30 | NUR ---
POWER GRADER OPERATOR ASSESSMENT REVIEWED AND AGREED WITH NOTED GENERAL ASSESSMENT.
[2022-03-14 12:43] LABS: UA COLLECTION TYPE CLN CATCH MIDSTREAM
== END 2022-03-14 13:30 | disposition home or self-care (01) ==
LOC: ER 11:27
DX: R10.11 Right upper quadrant pain (principal); M54.59 Other low back pain; I11.9 Hypertensive heart disease without heart failure; J44.9 Chronic obstructive pulmonary disease, unspecified; K21.9 Gastro-esophageal reflux disease without esophagitis; F41.9 Anxiety disorder, unspecified; G89.29 Other chronic pain; Z88.0 Allergy status to penicillin; Z79.899 Other long term (current) drug therapy; Z79.82 Long term (current) use of aspirin
CPT/HCPCS: 74018; 81003; 99284

== ENCOUNTER 2023-03-14 17:23 | Emergency (ER) | payer MEDICARE, MEDICAID ==
[~2023-03-14] VITALS: Ht 167.6 cm; Wt 80.5 kg
[2023-03-14 17:25] VITALS: TEMP 97.9
[2023-03-14] MEDS ORDERED: GUAI118S13 PO (18:17)
[2023-03-14 18:31] VITALS: BP 106/72; PULSE 79; RESP 18; O2SAT 95
== END 2023-03-14 18:32 | disposition home or self-care (01) ==
LOC: ER 17:23
DX: J06.9 Acute upper respiratory infection, unspecified (principal); R07.81 Pleurodynia; J44.9 Chronic obstructive pulmonary disease, unspecified; K21.9 Gastro-esophageal reflux disease without esophagitis; G89.29 Other chronic pain; M54.9 Dorsalgia, unspecified; F41.9 Anxiety disorder, unspecified; Z88.0 Allergy status to penicillin; Z88.1 Allergy status to other antibiotic agents; Z79.899 Other long term (current) drug therapy
CPT/HCPCS: 71046; 99283

== ENCOUNTER 2024-03-17 11:04 | Outpatient (CLI) | payer MEDICARE, MEDICAID ==
[~2024-03-17 11:04] MED LIST changes: +NICO-631 TD; -ONDA4TAB6 PO; +THI100I PO
== END 2024-03-17 23:59 | disposition home or self-care (01) ==
LOC: RAD 11:04
PROVIDERS: ATTEND Registered Nurse
DX: R05.3 Chronic cough (principal)
CPT/HCPCS: 71046

== ENCOUNTER 2024-07-04 21:54 | Emergency (ER) | payer MEDICARE, MEDICAID ==
[~2024-07-04] VITALS: Ht 167.6 cm; Wt 74.0 kg
[2024-07-04 22:21] LABS: BILIRUBIN,URINE NEGATIVE (Neg); CLARITY,URINE CLEAR (Clear); COLOR,URINE YELLOW (Yellow); GLUCOSE, URINE NEGATIVE (Neg); KETONES,URINE NEGATIVE (Neg); LEUKOCYTE ESTERASE ,URINE NEGATIVE (Neg); NITRITES, URINE NEGATIVE (Neg); OCCULT BLOOD,URINE NEGATIVE (Neg); PROTEIN,URINE NEGATIVE (Neg); UA COLLECTION TYPE NON-SPECIFIED; UROBILINOGEN,URINE 0.2 E.U/dL (0.2-1.0)
[2024-07-04 22:23] LABS: URINE HCG NEGATIVE (NEG)
[2024-07-04] MEDS ORDERED: iohexol 300mg/ml 100ml inj. ONE (22:38)
[2024-07-04 22:56] LABS: BASOPHILS # (AUTO) 0.1 X10'3 (0-0.2); BASOPHILS % (AUTO) 1.2 % (0-1); EOSINOPHILS # (AUTO) 0.1 X10'3 (0-0.9); EOSINOPHILS % (AUTO) 1.8 % (0-6); HEMATOCRIT 39.6 % (35.0-45.0); HEMOGLOBIN 13.5 g/dl (12.0-16.0); LYMPHOCYTES # (AUTO) 2.2 X10'3 (1.1-4.8); LYMPHOCYTES % (AUTO) 46.7 % (21-51); MEAN CORPUSCULAR HEMOGLOBIN 34.5 PG (27.0-31.0); MEAN CORPUSCULAR VOLUME 101.6 FL (78-98); MEAN PLATELET VOLUME 8.8 FL (7.4-10.4); MONOCYTES # (AUTO) 0.3 X10'3 (0-0.9); MONOCYTES % (AUTO) 6.5 % (2-12); NEUTROPHILS % (AUTO) 43.8 % (42-75); PLATELET COUNT 157 X10'3 (140-440); RED CELL DISTRIBUTION WIDTH 12.2 % (11.5-14.5); WHITE BLOOD COUNT 4.6 X10'3 (4.5-11.0)
[2024-07-04 23:12] LABS: ALANINE AMINOTRANSFERASE 55 U/L (12-78); ALBUMIN 3.5 G/DL (3.4-5.0); ALBUMIN/GLOBULIN RATIO 1.1 (1.1-1.5); ALKALINE PHOSPHATASE 73 IU/L (46-116); ANION GAP 13 (8-16); ASPARTATE AMINO TRANSFERASE 54 U/L (10-37); BILIRUBIN,TOTAL 0.4 MG/DL (0.1-1.0); BLOOD UREA NITROGEN 1 MG/DL (7-18); BUN/CREATININE RATIO 3.1 (10.0-20.0); CHLORIDE 95 MMOL/L (99-107); CREATININE 0.32 MG/DL (0.40-0.90); ETHANOL 266 MG/DL (<10); GLUCOSE 83 MG/DL (70-104); LIPASE 48 U/L (16-77); POTASSIUM 3.2 MMOL/L (3.5-5.1); SODIUM 130 MMOL/L (135-145); TOTAL CARBON DIOXIDE 22.3 MMOL/L (24-32); TOTAL PROTEIN 6.7 G/DL (6.4-8.2); eCRCL 177 ML/MIN; eGFR > 90 ML/MIN
[2024-07-05] MEDS ORDERED: DICY20TA17 PO (00:46)
[2024-07-05] MEDS: ketorolac trometh 30MG/ML vial 30 MG/ML VIAL IV ONE (01:05)
[2024-07-05 01:10] VITALS: BP 103/73; PULSE 104; RESP 16; TEMP 98.4; O2SAT 94
== END 2024-07-05 01:18 | disposition home or self-care (01) ==
LOC: ER 21:54
DX: R10.32 Left lower quadrant pain (principal); F10.129 Alcohol abuse with intoxication, unspecified; J44.9 Chronic obstructive pulmonary disease, unspecified; F41.9 Anxiety disorder, unspecified; Z85.038 Personal history of other malignant neoplasm of large intestine; Z86.73 Personal history of transient ischemic attack (TIA), and cerebral infarction without residual deficits; Z88.0 Allergy status to penicillin; Z88.5 Allergy status to narcotic agent; Z88.1 Allergy status to other antibiotic agents; Z90.49 Acquired absence of other specified parts of digestive tract; Z79.82 Long term (current) use of aspirin; Y90.9 Presence of alcohol in blood, level not specified
CPT/HCPCS: 36415; 74177; 80053; 81003; 81025; 83690; 85025; 96374; 99285; G0480; J1885; Q9967; 80320

== ENCOUNTER 2024-08-23 09:49 | Day surgery (SDC) | payer MEDICARE, MEDICAID ==
[2024-08-23] VITALS (13 sets, daily range): BP systolic 81–122; BP diastolic 56–73; PULSE 80–98; RESP 14–23; O2SAT 93–100
[~2024-08-23] VITALS: Ht 167.6 cm; Wt 73.2 kg
[~2024-08-23 09:49] MED LIST changes: -LORA10TA7 PO; -MULT-1130 PO; -NICO-631 TD; -THI100I PO
[2024-08-23] MEDS ORDERED: fentaNYL /PF 50mcg/ml 5ml ampule ONE (12:07)
[2024-08-23] MEDS ORDERED: MIDAZolam 1 MG/ML 5ML VIAL ONE (12:08)
[2024-08-23] MEDS ORDERED: fentaNYL/PF 50MCG/1 ML 2ML syringe ONE (12:09)
[2024-08-23] MEDS ORDERED: simethicone 40mg/0.6ml oral drops 30ml ONE (12:10)
== END 2024-08-23 13:35 | disposition home or self-care (01) ==
LOC: GI LAB 09:49
PROVIDERS: ATTEND Internal Medicine Gastroenterology
DX: R19.7 Diarrhea, unspecified (principal); K63.89 Other specified diseases of intestine; K64.8 Other hemorrhoids; Z98.0 Intestinal bypass and anastomosis status; Z85.038 Personal history of other malignant neoplasm of large intestine
CPT/HCPCS: 45380; A4620; G0500; J2250; J3010; J7030; Z7512; 99152; 99153